=== PATIENT | male | born 1990 | race African-American/Black ===

== ENCOUNTER 2020-10-22 11:53 | Emergency (ER) | payer OTHER ==
[~2020-10-22] VITALS: Ht 170.2 cm; Wt 65.8 kg
[2020-10-22] MEDS ORDERED: AMOXICILLIN 50500 MG PO (12:55)
[2020-10-22 12:59] VITALS: BP 126/72
== END 2020-10-22 13:00 | disposition home or self-care (01) ==
LOC: M.ERS 11:53
DX: J35.03 Chronic tonsillitis and adenoiditis (principal); Z20.828 Contact with and (suspected) exposure to other viral communicable diseases